=== PATIENT | male | born 1955 | race Caucasian/White ===

== ENCOUNTER 2024-03-06 11:41 | Observation (INO) | payer MEDICARE, BC ==
[2024-03-06] MEDS ORDERED: diphenhydrAMINE 50 MG/ML VIAL ONE (12:08)
[2024-03-06] MEDS ORDERED: Acetaminophen 500 MG TAB ONE (12:08)
[2024-03-06 12:38] LABS: #Basophils 0.02 10x3/uL (0.0-0.2); #Monocytes 0.51 10x3/uL (0.0-1.1); #Neutrophils 3.17 10x3/uL (1.5-8.4); %Basophils 0.3 % (0.0-2.0); %Eosinophils 1.4 % (0.0-6.0); %Lymphocytes 46.9 % (18.0-47.0); %Monocytes 7.1 % (0.0-10.0); %Neutrophils 44.2 % (40.0-75.0); Hemoglobin 14.5 g/dL (13.5-17.5); Mean Corpuscular HGB CONC 37.2 g/dL (32.0-36.0); Mean Corpuscular Hemoglobin 33.9 pg (27.0-33.0); Mean Corpuscular Volume 91.1 fL (81.2-95.1); Platelet Count 159 10x3/uL (150-450); RBC Distribution Width 12.6 % (11.5-14.5); Red Blood Cell (RBC) Count 4.28 10x6/uL (4.32-5.72); White Blood Cell (WBC) Count 7.2 10x3/uL (3.5-10.5)
[2024-03-06 12:43] LABS: INR-International Normal Ratio 1.1; PTT 30.3 sec (22.0-33.0); Prothrombin Time 11.7 sec (9.5-12.1)
[2024-03-06 12:51] LABS: ALT (SGPT) 23 U/L (8-55); AST (SGOT) 38 U/L (5-34); Albumin 4.2 g/dL (3.4-4.8); Alkaline Phosphatase 61 U/L (40-110); Anion Gap 15 mmol/L (10-20); BUN (Urea Nitrogen) 16 mg/dL (8.4-25.7); Bilirubin, Total 0.7 mg/dL (0.2-1.2); Calc. Creatinine Clearance 0 mL/min (70-130); Calcium 9.8 mg/dL (7.8-10.44); Carbon Dioxide 25 mmol/L (23-31); Chloride 105 mmol/L (98-107); Estimated GFR 77; Globulin 2.9 g/dL (2.4-3.5); Glucose 105 mg/dL (80-115); Potassium 3.7 mmol/L (3.5-5.1); Protein, Total 7.1 g/dL (5.8-8.1); Sodium 141 mmol/L (136-145)
[2024-03-06] MEDS ORDERED: ANTIVENIN,CROTALIDAE (ANAVIP) 10 EACH in Sodium Chloride 0.9% 250 ML 250 ML IVPB SCH (14:00)
[2024-03-06] MEDS ORDERED: Ondansetron PF 4 MG/2 ML Vial IVP PRN (14:09)
[2024-03-06] MEDS ORDERED: diphenhydrAMINE 50 MG/ML VIAL IVP PRN (14:09)
[2024-03-06] MEDS ORDERED: Morphine 4 MG/ML VIAL SLOW IVP PRN ×2 (14:09)
[2024-03-06] MEDS ORDERED: Acetaminophen 500 MG TAB PO PRN (14:09)
[2024-03-06] MEDS ORDERED: traMADol HCl 50 MG TAB ONE (16:18)
[2024-03-06] MEDS ORDERED: [UNRECOGNIZED DRUG - REMARK] FS PRN (16:41)
[2024-03-06 17:18] LABS: #Basophils 0.03 10x3/uL (0.0-0.2); #Eosinphils 0.01 10x3/uL (0.0-0.5); #Monocytes 0.77 10x3/uL (0.0-1.1); %Basophils 0.2 % (0.0-2.0); %Eosinophils 0.1 % (0.0-6.0); %Lymphocytes 3.9 % (18.0-47.0); %Monocytes 5.6 % (0.0-10.0); %Neutrophils 89.8 % (40.0-75.0); Hematocrit 37.5 % (38.8-50.0); Hemoglobin 13.6 g/dL (13.5-17.5); Mean Corpuscular HGB CONC 36.3 g/dL (32.0-36.0); Mean Corpuscular Hemoglobin 33.5 pg (27.0-33.0); Mean Corpuscular Volume 92.4 fL (81.2-95.1); Mean Platelet Volume 11.6 fL (7.4-10.4); Platelet Count 145 10x3/uL (150-450); RBC Distribution Width 12.6 % (11.5-14.5); Red Blood Cell (RBC) Count 4.06 10x6/uL (4.32-5.72); White Blood Cell (WBC) Count 13.7 10x3/uL (3.5-10.5)
[2024-03-06 17:28] LABS: INR-International Normal Ratio 1.3; PTT 33.4 sec (22.0-33.0); Prothrombin Time 13.4 sec (9.5-12.1)
[2024-03-06 17:38] LABS: ALT (SGPT) 19 U/L (8-55); AST (SGOT) 31 U/L (5-34); Albumin 3.7 g/dL (3.4-4.8); Alkaline Phosphatase 52 U/L (40-110); Anion Gap 11 mmol/L (10-20); BUN (Urea Nitrogen) 16 mg/dL (8.4-25.7); Bilirubin, Total 0.6 mg/dL (0.2-1.2); Calc. Creatinine Clearance 0 mL/min (70-130); Calcium 9.1 mg/dL (7.8-10.44); Carbon Dioxide 26 mmol/L (23-31); Chloride 107 mmol/L (98-107); Estimated GFR 80; Globulin 2.5 g/dL (2.4-3.5); Glucose 109 mg/dL (80-115); Potassium 4.3 mmol/L (3.5-5.1); Protein, Total 6.2 g/dL (5.8-8.1); Sodium 140 mmol/L (136-145)
[2024-03-06] MEDS: ANTIVENIN,CROTALIDAE (ANAVIP) 10 EACH in Sodium Chloride 0.9% 250 ML 250 ML IVPB SCH ×2 (17:48→20:22)
[2024-03-06] MEDS: HYDROcodone/Acetaminophen 5/325 mg Tablet PO PRN (18:18)
[2024-03-06] MEDS: Boostrix 0.5 ML (Tdap) VIAL (>/=7 yrs of age) IM ONE (18:43)
[2024-03-06] MEDS ORDERED: Lactated Ringer's 1,000 ML IV SCH (21:15)
[2024-03-06] MEDS: methylPREDNISolone Sod Succ/PF 125 MG/2 ML VIAL IVP SCH (21:41)
[2024-03-06 22:52] LABS: INR-International Normal Ratio 1.2; Prothrombin Time 12.9 sec (9.5-12.1)
[2024-03-06 22:53] LABS: #Basophils 0.02 10x3/uL (0.0-0.2); #Eosinphils 0.03 10x3/uL (0.0-0.5); #Monocytes 0.54 10x3/uL (0.0-1.1); #Neutrophils 8.56 10x3/uL (1.5-8.4); %Basophils 0.2 % (0.0-2.0); %Eosinophils 0.3 % (0.0-6.0); %Lymphocytes 7.6 % (18.0-47.0); %Monocytes 5.4 % (0.0-10.0); %Neutrophils 86.1 % (40.0-75.0); Hematocrit 36.3 % (38.8-50.0); Hemoglobin 12.8 g/dL (13.5-17.5); Mean Corpuscular HGB CONC 35.3 g/dL (32.0-36.0); Mean Corpuscular Hemoglobin 33.2 pg (27.0-33.0); Mean Platelet Volume 11.2 fL (7.4-10.4); Platelet Count 143 10x3/uL (150-450); RBC Distribution Width 13.1 % (11.5-14.5); Red Blood Cell (RBC) Count 3.86 10x6/uL (4.32-5.72)
[2024-03-06 22:54] LABS: ALT (SGPT) 17 U/L (8-55); AST (SGOT) 26 U/L (5-34); Albumin 3.3 g/dL (3.4-4.8); Alkaline Phosphatase 49 U/L (40-110); Anion Gap 10 mmol/L (10-20); BUN (Urea Nitrogen) 15 mg/dL (8.4-25.7); Bilirubin, Total 0.6 mg/dL (0.2-1.2); Calc. Creatinine Clearance 60 mL/min (70-130); Calcium 8.6 mg/dL (7.8-10.44); Carbon Dioxide 27 mmol/L (23-31); Chloride 108 mmol/L (98-107); Estimated GFR 88; Globulin 2.3 g/dL (2.4-3.5); Glucose 150 mg/dL (80-115); Potassium 4.5 mmol/L (3.5-5.1); Protein, Total 5.6 g/dL (5.8-8.1); Sodium 140 mmol/L (136-145)
[2024-03-07] MEDS: HYDROcodone/Acetaminophen 5/325 mg Tablet PO PRN (06:07)
[2024-03-07 06:56] VITALS: BMI 21.3
[2024-03-07 14:41] VITALS: TEMP 98.6
== END 2024-03-07 14:35 | disposition home or self-care (01) ==
LOC: CSHERS 11:41 → CSHERHOLD 14:04 → CSHTELE 17:25
PROVIDERS: ADMIT Family Medicine; ATTEND Family Medicine
DX: T63.001A Toxic effect of unspecified snake venom, accidental (unintentional), initial encounter (principal); Z79.82 Long term (current) use of aspirin; Z79.899 Other long term (current) drug therapy
CPT/HCPCS: 80053 ×2; 82962 ×2; 85025 ×2; 85384; 85610 ×2; 85730 ×2; 96361; 96365; 96375; 99284; J0841; J1200; J7050; 36416; 96376; G0378